=== PATIENT | male | born 1995 | race Caucasian/White ===

== ENCOUNTER 2022-08-28 22:44 | Emergency (ER) | payer SELFPAY | END 2022-08-29 00:20 | disposition left against medical advice (07) | LOC: JD.ED 22:44 | DX: Z76.5 Malingerer [conscious simulation] (principal); R20.2 Paresthesia of skin; Z88.0 Allergy status to penicillin | CPT/HCPCS: 99283 ==

== ENCOUNTER 2022-09-09 04:00 | Day surgery (SDC) | payer SELFPAY ==
[2022-09-09] MEDS ORDERED: fentaNYL 100 MCG/2 ML SDV IVPUSH ONE (04:24)
[2022-09-09] MEDS ORDERED: Lactated Ringers 1,000 ML IV ONE (04:24)
[2022-09-09] MEDS ORDERED: Ondansetron 4 MG/2 ML SDV IVPUSH ONE (04:24)
[2022-09-09] MEDS ORDERED: Iopamidol 612 MG/ML 100 ML Bottle IVPUSH ONE (04:51)
[2022-09-09 04:52] LABS: CORONAVIRUS COVID-19 NAA NEGATIVE (NEGATIVE)
[2022-09-09] MEDS ORDERED: Levofloxacin/Dextrose 5%-Water 750 MG in Premix Bag 1 BAG IV ONE (05:23)
[2022-09-09] MEDS ORDERED: metroNIDAZOLE/Normal Saline 500 MG in Premix Bag 1 BAG IV ONE (05:23)
[2022-09-09] MEDS ORDERED: LORazepam 2 MG/ML SDV IVPUSH ONE (05:25)
[2022-09-09] MEDS ORDERED: Sodium Chloride 0.9% 1,000 ML IV SCH (05:30)
[2022-09-09] MEDS: Potassium Chloride 10 MEQ in Premix Bag 1 BAG IV SCH ×3 (06:01→09:19)
[2022-09-09] MEDS ORDERED: Morphine 4 MG/ML Syringe IVPUSH ONE (06:28)
[2022-09-09] MEDS ORDERED: Metoclopramide 10 MG/2 ML SDV IVPUSH ONE (07:23)
[2022-09-09] MEDS ORDERED: HYDROmorphone 0.5 MG/0.5 ML Syringe IVPUSH ONE (07:24)
[2022-09-09] MEDS ORDERED: diphenhydrAMINE 50 MG/ML SDV IVPUSH ONE (07:24)
[2022-09-09] MEDS ORDERED: Propofol 200 MG/20 ML SDV ONE (08:44)
[2022-09-09] MEDS ORDERED: Lidocaine 1% 2 ML ONE (08:44)
[2022-09-09] MEDS ORDERED: Lidocaine 1% 5 ML VIAL ONE (08:44)
[2022-09-09] MEDS ORDERED: Midazolam 1 MG/ML 2 ML SDV ONE (08:59)
[2022-09-09] MEDS ORDERED: fentaNYL 100 MCG/2 ML SDV ONE (09:00)
[2022-09-09] MEDS ORDERED: Lidocaine 1% 30 ML SDV ONE (09:03)
[2022-09-09] MEDS ORDERED: Bupivacaine 0.5%/EPINEPHrine 1:200,000 50 ML MDV ONE (09:04)
[2022-09-09] MEDS ORDERED: Lactated Ringers 1,000 ML ONE ×2 (09:27→12:30)
[2022-09-09] MEDS ORDERED: Dexamethasone 4 MG/ML 5 ML MDV ONE (10:05)
[2022-09-09] MEDS ORDERED: Ondansetron 4 MG/2 ML SDV ONE (10:10)
[2022-09-09] MEDS ORDERED: Sugammadex Sodium 200 MG/2 ML VIAL ONE (10:19)
[2022-09-09] MEDS ORDERED: Acetaminophen/oxyCODONE 325-5 MG Tab PO ONE ×2 (11:05→11:07)
== END 2022-09-09 11:48 | disposition home or self-care (01) ==
LOC: JD.ED 04:00 → JD.SDS 09:03
PROVIDERS: ATTEND Surgery
DX: K35.33 Acute appendicitis with perforation, localized peritonitis, and gangrene, with abscess (principal); F17.210 Nicotine dependence, cigarettes, uncomplicated; F41.9 Anxiety disorder, unspecified; F32.A Depression, unspecified; Z20.822 Contact with and (suspected) exposure to COVID-19; Z88.0 Allergy status to penicillin; Z79.899 Other long term (current) drug therapy
CPT/HCPCS: 0241U; 36415; 44970; 74177; 80053; 81003; 83690; 85025; A9270; J1100; J1170; J1956; J2060; J2250; J2270; J2405; J2704; J2765; J3010; J3480; J3490; J7030; J7120; Q9967; 00840